=== PATIENT | female | born 1975 ===

== ENCOUNTER 2018-01-18 01:19 | Day surgery (SDC) | payer BC ==
[~2018-01-18] VITALS: Ht 175.3 cm; Wt 145.6 kg
[~2018-01-18 01:19] MED LIST: ASCO-182 PO; BUPR200T18 PO; CHOL10005 PO; CYAN500T38 PO; ESCI10TA8 PO; IRON150C19 PO; TOPI-121 PO
[2018-01-18] MEDS ORDERED: ceFAZolin(*) 2GM/D5W 50ML 50 ML IVPB ONE (06:15)
[2018-01-18] MEDS ORDERED: LIDOCAINE/SOD BICARB 8.4% SYR ID ONE (06:15)
[2018-01-18] MEDS ORDERED: MIDAZOLAM 2 MG/2 ML VIAL IVP PRN (06:15)
[2018-01-18] MEDS ORDERED: CELECOXIB 200 MG CAP PO ONE (06:15)
[2018-01-18] MEDS ORDERED: NORMOSOL R SOLN(*) 1000 ML BAG 1,000 ML IV PRN (06:15)
[2018-01-18] MEDS ORDERED: FAMOTIDINE 20 MG TAB PO ONE (06:15)
[2018-01-18 06:39] VITALS: BP 124/90
[2018-01-18] MEDS ORDERED: ROPIVACAINE 0.2% 20 ML VIAL ONE (06:52)
[2018-01-18] MEDS ORDERED: DEXAMETHASONE SOD PHOS 10MG/ML ONE (07:07)
[2018-01-18] MEDS ORDERED: LIDOCAINE MPF 1% 5 ML VIAL ONE (07:07)
[2018-01-18] MEDS ORDERED: ONDANSETRON 4 MG/2 ML VIAL ONE (07:07)
[2018-01-18] MEDS ORDERED: KETOROLAC 30 MG/ML VIAL ONE (07:07)
[2018-01-18] MEDS ORDERED: PROPOFOL EMUL(*) 10MG/ML 20 ML 40 ML ONE (07:07)
[2018-01-18] MEDS ORDERED: SUCCINYLCHOL CHL 200MG/10ML VL ONE (07:30)
[2018-01-18] MEDS ORDERED: ROCURONIUM BROM 10 MG/ML 5 ML ONE (07:30)
[2018-01-18] MEDS ORDERED: fentaNYL CITR 100 MCG/2 ML AMP ONE ×2 (08:01→08:34)
[2018-01-18] MEDS ORDERED: SUGAMMADEX SOD 200 MG/2 ML SDV ONE (08:02)
[2018-01-18] MEDS ORDERED: HYDR-4309 PO (08:26)
[2018-01-18 09:10] VITALS: BP 99/69
[2018-01-18 09:30] VITALS: BP 99/68
[2018-01-18] MEDS ORDERED: APAP/HYDROCODONE 325/5 TAB ONE (09:44)
[2018-01-18 09:46] VITALS: BP 118/86
[2018-01-18 09:48] VITALS: BP 133/87
--- NOTE | 2018-01-18 13:43 | OPERATIVE REPORT 1 ---
EVENT DATE: January 18, 2018 SURGEON: Aries Osorio MD ANESTHESIOLOGIST: Mingo Garcia MD ANESTHESIA: General LMA DECISION SUPPORT ANALYST: Gil Paige PA-C PREOPERATIVE DIAGNOSIS Left knee meniscus tear as well as some cartilage damage and synovitis. POSTOPERATIVE DIAGNOSIS Left knee meniscus tear as well as some cartilage damage and synovitis. PROCEDURE PERFORMED Left knee arthroscopy with partial medial and partial lateral meniscectomy, chondroplasty and minor synovectomy and plica removal. FINDINGS The patient had a significant amount of torn cartilage throughout the knee and a meniscus tear in the inside of the knee. ESTIMATED BLOOD LOSS Minimal. DRAINS None. COMPLICATIONS None. IMPLANTS Not applicable. SPECIMENS None. TOURNIQUET TIME About 30 minutes. INDICATIONS AND HISTORY This patient is a 42-year-old female who presented to my clinic for evaluation of left knee pain and irrigation going on for some continued time. She failed conservative management and so therefore we got her set up for an MRI. MRI indicated that she has a significant amount of cartilage damage within the knee itself, and also some meniscal tearing. Since she was continuing to having pain and problems and failed conservative management, she wanted to go ahead with a knee arthroscopy today January 18, 2018. The risks and benefits were discussed with the patient, and informed consent was obtained. We made it very clear this may not solve all of her problems, and she may continue to have pain and problems associated with it secondarily due to her weight and pressure on her knees and the existing cartilage damage within the knees itself, and she said she understood that, and the risks and benefits were discussed, and informed consent was obtained. DESCRIPTION OF PROCEDURE Patient was brought into the operating room. She and the procedure were both verified. She was placed supine on the operative table and induced and intubated by anesthesia. The left lower extremity was then prepped and draped in the usual fashion, and time out was observed, verifying the correct patient and procedure. After inflation of the tourniquet, I made two small incisions over the anterior aspect of the knee. The scope was inserted on the lateral side, and I performed a diagnostic arthroscopy. This was when there was noted to be a significant amount of cartilage damage throughout the knee itself, especially in the patellofemoral joint and on the medial and lateral femoral condyles, worse on the medial side. The lateral condyle was worse on the superior aspect. I then was able to perform a chondroplasty and minor synovectomy by removing the plica through this area and a lot of the synovitic tissue. I was also able to clean up a lot of the loose fragments of cartilage and the loose bodies throughout the knee itself, and to clean up the edges of the soft cartilage where it starting to fray and irritate and pull apart. I then went into the medial compartment, where I was able to perform a partial meniscectomy on the posterior aspect of the meniscus, where we utilized a combination of a suction shaver and a meniscal biter in order to remove the loose fragment of the meniscus that was torn and flipped into this area. I was then able to probe it and make sure there were no further signs of flips or issues with this, and then performed a chondroplasty on the distal femoral condyle as well as the proximal tibia. I was then able to trim up the meniscus to a nice stable base and make sure there were no further signs of issues associated with this. I then cleaned up the synovium around the ACL and tested the ACL, and there were no signs of problems with the probe, and the ACL looked intact. I then turned attention to the lateral compartment, where there was some cartilage damage on the distal femoral condyle more towards the notch itself, and a little bit on the proximal tibia. I was then able to also perform a partial meniscectomy on this, as there was some fraying and irritation on the undersurface of the meniscus. I probed it to make sure there were no signs of instability associated with it, and then removed the lateral plica. I then reversed the portals to where I was viewing from the medial side, and working from the lateral side, I then performed a chondroplasty on the patellofemoral joint from the other side and a little bit on the lateral femoral on the lateral side and removed some of the synovitis through this area also. I then did another diagnostic arthroscopy, making sure there were no further loose bodies or issues associated with it. I did not see anything in there, so therefore we were able to remove all instrumentation, drain the fluid out of the knee, and then close the portal sites with a 4-0 Monocryl in interrupted subcuticular fashion, anesthetize the wound with ropivacaine and then dressed with Steri-Strips, gauze 4x4's and a soft dressing. Tourniquet was let down after 30 minutes, and she was transferred to PACU in stable condition. SHAMA
== END 2018-01-18 09:10 | disposition home or self-care (01) ==
LOC: OR 01:19
PROVIDERS: ATTEND Orthopaedic Surgery
DX: S83.207A Unspecified tear of unspecified meniscus, current injury, left knee, initial encounter (principal); M65.9 Synovitis and tenosynovitis, unspecified
CPT/HCPCS: 29880; 36415; 84703; J0330; J1100; J1885; J2001; J2250; J2405; J2704; J2795; J3010; J0690